=== PATIENT | female | born 2000 | race Hispanic/Latino ===

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

== ENCOUNTER 2022-03-23 13:23 | Observation (INO) | payer MEDICAID ==
[~2022-03-23] VITALS: Ht 157.5 cm; Wt 49.6 kg
[2022-03-23 13:40] LABS: BASOPHILS % (AUTO) 0.2 % (0.0-5.0); HEMATOCRIT 37.1 % (36-48); MEAN CORPUSCULAR HEMOGLOBIN 30.7 pg (27.0-33.0); MEAN CORPUSCULAR HGB CONC 34.8 g/dL (32.0-36.0); MEAN CORPUSCULAR VOLUME 88.3 fL (80-100); MONOCYTES % (AUTO) 1.7 % (3.0-13.0); NEUTROPHILS % (AUTO) 94.5 % (40.0-77.0); PLATELET COUNT (AUTO) 271 K/uL (130-400); RED CELL DISTRIBUTION WIDTH 13.6 % (11.0-15.5); WHITE BLOOD COUNT (AUTO) 19.2 K/uL (4.8-10.8)
[2022-03-23 13:51] LABS: CARBON DIOXIDE 22 mmol/L (21-32); CHLORIDE 98 mmol/L (101-111); CREATININE 0.7 mg/dL (0.5-1.5); GLOMERULAR FILTR. RATE CALC 113 mL/min (>60); GLUCOSE,RANDOM 105 mg/dL (70-105); POTASSIUM 3.1 mmol/L (3.5-5.1); SODIUM SERUM 131 mmol/L (136-145); UREA NITROGEN, BLOOD 7 mg/dL (7-18)
[2022-03-23 13:58] LABS: ALANINE AMINOTRANSFERASE 19 U/L (12-78); ALBUMIN 3.5 g/dL (3.5-5.0); ASPARTATE AMINOTRANSFERASE 18 U/L (10-37); TOTAL PROTEIN, SERUM 7.2 g/dL (6.0-8.3)
[2022-03-23 14:00] LABS: LIPASE < 50 U/L (114-286)
[2022-03-23 14:14] LABS: APPEARANCE,URINE CLOUDY (CLEAR); BILIRUBIN,URINE NEGATIVE (NEGATIVE); COLOR,URINE LIGHT-ORANGE (YELLOW); GLUCOSE, URINE (UA) NEGATIVE (NEGATIVE); KETONES,URINE 40 mg/dL (NEGATIVE); LEUKOCYTE ESTERASE ,URINE 500 Leu/uL (NEGATIVE); NITRATE,URINE 2+ (NEGATIVE); OCCULT BLOOD,URINE SMALL (NEGATIVE); PH,URINE 6.5 (5.0-8.0); PROTEIN,URINE 70 mg/dL (NEGATIVE); UROBILINOGEN,URINE 0.2 mg/dL (0.2-1.0)
[2022-03-23 14:16] LABS: HCG,QUALITATIVE URINE NEGATIVE (NEGATIVE)
[2022-03-23 14:28] LABS: BACTERIA,URINE FEW /HPF (None Seen); MUCUS,URINE RARE LPF (None Seen); SQUAMOUS EPITHELIAL CELL,UR FEW /HPF (0-2); WBC,URINE >100 /HPF (0-1); YEAST,URINE BUDDING MOD /HPF (None Seen)
[2022-03-23] MEDS ORDERED: ZOSYN 3.375GM +NS 50ML IV ONE (15:00)
[2022-03-23] MEDS ORDERED: IOHEXOL 350 MG/ML 100ML INFUS..BTL IV ONE (17:32)
[2022-03-23] MEDS ORDERED: DIATR MEGLU/DIATRIZOATE SODIUM 30 ML BOTTLE ONE (17:40)
[2022-03-23] MEDS ORDERED: TEMAZEPAM 15 MG CAPSULE PO PRN (19:00)
[2022-03-23] MEDS ORDERED: KCL 20 MEQ ERTAB PO PRN (19:00)
[2022-03-23] MEDS ORDERED: LIDOCAINE HCL-MPF 1% 2ML VIAL IJ PRN (19:00)
[2022-03-23] MEDS ORDERED: POTASSIUM CHLORIDE 10% ELIXIR 20 MEQ/15 ML UDCUP PO PRN (19:00)
[2022-03-23] MEDS ORDERED: HYDROCODONE/ACETAMINOPHEN 5/325 MG TAB PO PRN (19:00)
[2022-03-23] MEDS ORDERED: ACETAMINOPHEN 325 MG TAB PO PRN (19:00)
[2022-03-23] MEDS ORDERED: ONDANSETRON 4MG INJ IVP PRN (19:00)
[2022-03-23] MEDS ORDERED: POTASSIUM CHLORIDE 20MEQ/100ML 100 ML IV PRN (19:00)
[2022-03-23] MEDS: 0.9%NACL 1000ML 1,000 ML IV SCH (19:16)
[2022-03-23 23:37] VITALS: BP 115/60
[2022-03-24] MEDS ORDERED: FLUO10TA3 PO (00:39)
[2022-03-24 03:45] VITALS: BP 105/56
[2022-03-24 05:18] LABS: HEMATOCRIT 37.9 % (36-48); MEAN CORPUSCULAR HEMOGLOBIN 30.5 pg (27.0-33.0); MEAN CORPUSCULAR HGB CONC 34.3 g/dL (32.0-36.0); RED BLOOD CELL COUNT(AUTO) 4.26 MIL/uL (4.00-5.50); RED CELL DISTRIBUTION WIDTH 13.7 % (11.0-15.5); WHITE BLOOD COUNT (AUTO) 15.4 K/uL (4.8-10.8)
[2022-03-24 05:42] LABS: CREATININE 0.8 mg/dL (0.5-1.5); MAGNESIUM 1.8 mg/dL (1.80-2.40); PHOSPHORUS 3.5 mg/dL (2.5-4.9); POTASSIUM 3.8 mmol/L (3.5-5.1)
[2022-03-24] MEDS: 0.9%NACL 1000ML 1,000 ML IV SCH ×2 (06:42→15:17)
[2022-03-24 08:00] VITALS: BP 103/57
[2022-03-24] MEDS ORDERED: ENOXAPARIN SODIUM 30 MG/0.3 ML SQ SCH (09:00)
[2022-03-24] MEDS ORDERED: CEFTRIAXONE 1G VIAL IVP SCH (09:00)
[2022-03-24] MEDS ORDERED: PANTOPRAZOLE 40 MG TAB DR PO SCH (09:00)
[2022-03-24] MEDS ORDERED: KETOROLAC 30MG VIAL (30MG/ML) IM PRN (11:30)
[2022-03-24] MEDS ORDERED: KETOROLAC 30MG VIAL (30MG/ML) IM SCH (11:30)
[2022-03-24 11:55] VITALS: BP 97/46
[2022-03-24 16:00] VITALS: BP 109/65
[2022-03-24] MEDS ORDERED: SULF1TAB42 PO (17:21)
== END 2022-03-24 18:00 | disposition home or self-care (01) ==
LOC: EDH 13:23 → EDHIP 13:24 → UNDOADMOB 18:19 → 3DH 21:29
PROVIDERS: ADMIT Internal Medicine Pulmonary Disease; ATTEND Internal Medicine Pulmonary Disease
DX: N39.0 Urinary tract infection, site not specified (principal); R10.31 Right lower quadrant pain; D72.829 Elevated white blood cell count, unspecified; E87.8 Other disorders of electrolyte and fluid balance, not elsewhere classified
CPT/HCPCS: 96361 ×3; 96365; 96366; 99285; 80053; 83690; 85025; 87088; 83605; 81001; 81025; 36415 ×2; 74176; 74177; 76705; 84145; 96372; 96375; 83735; 84100; 80048; 85027; G0378 ×23; Q9963; J7030 ×3; J2543; Q9967; J1650; J0696 ×2